=== PATIENT | female | born 1990 | race Caucasian/White ===

== ENCOUNTER 2024-07-10 14:41 | Emergency (ER) | payer MEDICAID, OTHER ==
[~2024-07-10] VITALS: Ht 170.2 cm; Wt 104.5 kg
[~2024-07-10 14:41] MED LIST: NOCURR
[2024-07-10 15:16] VITALS: TEMP 98.5
[2024-07-10 15:27] LABS: BASOPHILS % (AUTO) 0.2 % (0.0-2.0); EOSINOPHILS % (AUTO) 0.1 % (1.0-6.0); HEMATOCRIT 38.5 % (36-46); LYMPHOCYTES # (AUTO) 0.9 K/uL (1.0-4.8); MEAN CORPUSCULAR HEMOGLOBIN 31.5 pg (26.0-34.0); MEAN CORPUSCULAR HGB CONC 33.8 G/dL (31.0-37.0); MEAN CORPUSCULAR VOLUME 93 fL (80-100); MONOCYTES # (AUTO) 0.6 K/uL (0.1-1.0); MONOCYTES % (AUTO) 4.4 % (2.0-9.0); NEUTROPHILS # (AUTO) 11.5 K/uL (1.8-7.7); PLATELET COUNT (AUTO) 211 K/uL (150-450); RED BLOOD CELL COUNT(AUTO) 4.13 MIL/uL (4.00-5.20); RED CELL DISTRIBUTION WIDTH 13.8 % (11.5-14.5)
[2024-07-10 15:28] LABS: NEUTROPHILS % (AUTO) 88.3 % (40.0-70.0)
[2024-07-10 15:36] LABS: ANION GAP 8 mmol/L (8-16); CALCIUM, TOTAL 8.5 mg/dL (8.8-10.5); CARBON DIOXIDE 27 mmol/L (22-29); CHLORIDE 105 mmol/L (98-107); GLOMERULAR FILTR. RATE CALC > 60 mL/min (>60); GLUCOSE,RANDOM 119 mg/dL (70-110); SODIUM SERUM 140 mmol/L (136-145); UREA NITROGEN, BLOOD 16 mg/dL (7-18)
[2024-07-10] MEDS: LIDOCAINE 5% TRANSDERMAL PATCH TD ONE (15:38)
[2024-07-10] MEDS: KETOROLAC TROMETHAMINE 30 MG/ML VIAL IM ONE (15:39)
[2024-07-10 16:05] LABS: HCG,QUANTITATIVE 16579 mIU/mL (0-6)
[2024-07-10 17:00] VITALS: BP 144/84; PULSE 84; RESP 18; O2SAT 98
== END 2024-07-10 19:37 | disposition home or self-care (01) ==
LOC: EMS 14:41
DX: O9A.212 Injury, poisoning and certain other consequences of external causes complicating pregnancy, second trimester (principal); S20.312A Abrasion of left front wall of thorax, initial encounter; F20.9 Schizophrenia, unspecified; F12.90 Cannabis use, unspecified, uncomplicated; F17.210 Nicotine dependence, cigarettes, uncomplicated; Z3A.19 19 weeks gestation of pregnancy; V43.52XA Car driver injured in collision with other type car in traffic accident, initial encounter; Y93.89 Activity, other specified; Y92.89 Other specified places as the place of occurrence of the external cause; Y99.8 Other external cause status
CPT/HCPCS: 99284; 76801; 80048; 84702; 85025; 36415; J1885; G0480